=== PATIENT | female | born 1970 | race Caucasian/White ===

== ENCOUNTER 2020-08-28 19:08 | Emergency (ER) | payer OTHER, MEDICARE ==
[~2020-08-28] VITALS: Ht 157.5 cm; Wt 86.6 kg
[2020-08-28] MEDS ORDERED: TRUVTAB PO ×2 (19:36→21:49)
[2020-08-28] MEDS ORDERED: RALT40TA PO ×2 (19:36→21:49)
[2020-08-28 20:51] LABS: BASO % 0.5 % (0.0-1.0); EOS # 0.1 10^3/uL (0.0-0.5); HEMATOCRIT 36.1 % (36.0-47.0); HEMOGLOBIN 11.5 g/dl (12.0-15.5); LYMPH # 1.7 10^3/uL (1.5-5.0); LYMPH % 28.7 % (24.0-44.0); MEAN CORPUSCULAR HEMOGLOBIN 31.5 pg (27.0-33.0); MEAN CORPUSCULAR HGB CONC 31.9 g/dl (32.0-36.5); MEAN CORPUSCULAR VOLUME 98.9 fl (80.0-96.0); MONO # 0.4 10^3/uL (0.0-0.8); MONO % 6.5 % (0.0-5.0); NEUTROPHILS # 3.7 10^3/uL (1.5-8.5); NEUTROPHILS % 62.1 % (36.0-66.0); PLATELET COUNT, AUTOMATED 281 10^3/uL (150-450); RED BLOOD COUNT 3.65 10^6/uL (4.00-5.40)
[2020-08-28] MEDS ORDERED: BOOSTRIX/ADACEL VACCINE (DIPHTH/PERTUSS/ACELL/TETANUS) 0.5ML SYR IM ONE (21:15)
[2020-08-28] MEDS ORDERED: EXPOSURE KIT-ADULT 7 DAY SUPPLY PO ONE (21:15)
[2020-08-28] MEDS ORDERED: HEPATITIS B VACCINE 20MCG/ML 1ML SYRINGE (ADULT DOSE) IM ONE (21:15)
[2020-08-28] MEDS ORDERED: HEPATITIS B IMMUNE GLOBULIN 5ML INJ (J1571) IM ONE (21:15)
[2020-08-28 21:37] LABS: ALT/SGPT 12 U/L (12-78); BILIRUBIN,TOTAL 0.5 MG/DL (0.2-1.0); BLOOD UREA NITROGEN 7 MG/DL (7-18); CALCIUM LEVEL 8.7 MG/DL (8.5-10.1); CARBON DIOXIDE LEVEL 26 MEQ/L (21-32); CHLORIDE LEVEL 108 MEQ/L (98-107); GLOMERULAR FILTRATION RATE > 60.0 (>51); GLUCOSE, FASTING 83 MG/DL (70-100); POTASSIUM SERUM 3.9 MEQ/L (3.5-5.1); SODIUM LEVEL 139 MEQ/L (136-145); TOTAL PROTEIN 7.1 GM/DL (6.4-8.2)
[2020-08-28 21:43] LABS: HCG, SERUM QUALITATIVE NEGATIVE (NEGATIVE)
[2020-08-28 21:47] LABS: HEPATITIS B SURFACE ANTIBODY NEGATIVE (POSITIVE)
[2020-08-28 21:58] LABS: HEPATITIS B SURFACE ANTIGEN NEGATIVE (NEGATIVE)
[2020-08-28] MEDS ORDERED: TRUVADA 200MG/300MG TABLET PO ONE (22:00)
[2020-08-28] MEDS ORDERED: RALTEGRAVIR 400 MG TAB (ISENTRESS) PO ONE (22:00)
[2020-08-28 22:26] LABS: HEPATITIS C VIRUS ABY INDEX 0.1 INDEX (<0.8)
[2020-08-28 22:27] LABS: HIV 1&2 SCREEN CENTAUR NEGATIVE (NEGATIVE)
[2020-08-28 22:35] VITALS: BP 128/84
[2020-08-29] MEDS ORDERED: RALTEGRAVIR 400 MG TAB (ISENTRESS) PO SCH
[2020-08-29] MEDS ORDERED: TRUVADA 200MG/300MG TABLET PO SCH
== END 2020-08-28 22:36 | disposition home or self-care (01) ==
LOC: M ED 19:08
DX: Z77.21 Contact with and (suspected) exposure to potentially hazardous body fluids (principal); W46.1XXA Contact with contaminated hypodermic needle, initial encounter; Z88.2 Allergy status to sulfonamides; Z88.6 Allergy status to analgesic agent
CPT/HCPCS: 80053; 84703; 85025; 86706; 86803; 87340; 87389; 90471; 90472; 90715; 90746; 99283; J1571